=== PATIENT | male | born 1990 | race Caucasian/White ===

== ENCOUNTER 2018-11-20 20:19 | Emergency (ER) | payer OTHER ==
[~2018-11-20] VITALS: Ht 172.7 cm; Wt 82.4 kg
[~2018-11-20 20:19] MED LIST: IBUP800T48 PO; SIME180C13 PO
[2018-11-20 20:26] VITALS: Ht 172.7 cm; Wt 82.4 kg
[2018-11-21] MEDS ORDERED: IBUPROFEN 800 MG TAB PO ONE
[2018-11-21 00:16] VITALS: BP 154/80; PULSE 63; RESP 18
== END 2018-11-21 00:17 | disposition home or self-care (01) ==
LOC: FTE 20:19
DX: R10.9 Unspecified abdominal pain (principal); R14.1 Gas pain
CPT/HCPCS: 99282